=== PATIENT | female | born 1945 | race Caucasian/White ===

== ENCOUNTER → 2017-07-22 | Outpatient (CLI) | payer MEDICARE, OTHER ==
[~2017-07-22] MED LIST: Acetaminophen1 EAC2 PO; Balsalazide Di750 MG PO; GLUCOSAMINE CH1 EAC1 PO; IBUP800; TUMS ULTRA ST1177 MG PO
== END | disposition home or self-care (01) ==
LOC: LAB SHORT 14:13 → PLD 14:13
DX: D48.5 Neoplasm of uncertain behavior of skin (principal)
CPT/HCPCS: 88305

== ENCOUNTER 2017-09-11 06:44 | Day surgery (SDC) | payer MEDICARE, OTHER ==
[~2017-09-11] VITALS: Ht 162.6 cm; Wt 84.8 kg
[~2017-09-11 06:44] MED LIST changes: +Aspirin EC81 MG; +FOLI1; +SULF500A
== END 2017-09-11 08:31 | disposition home or self-care (01) ==
LOC: ORSCSDS 06:44
PROVIDERS: Ophthalmology
PROC: 08RK3JZ Replacement of Left Lens with Synthetic Substitute, Percutaneous Approach (ICD-10-PCS; principal; 2017-09-11 08:00)
DX: H25.12 Age-related nuclear cataract, left eye (principal)
CPT/HCPCS: J2250; J3010; J3301; V2632

== ENCOUNTER 2018-12-03 08:19 | Day surgery (SDC) | payer MEDICARE, OTHER ==
[~2018-12-03] VITALS: Ht 160 cm; Wt 83.0 kg
[~2018-12-03 08:19] MED LIST changes: +Anti-Diarrheal2 MG PO; -FOLI1; +FOLI1 PO; +Hair, Skin & N1 EACH PO; +NITR.4SL SL; +OMEPRAZOLE20 MG PO; -SULF500A; +SULF500A PO; +VITAMIN D31000 UNIT PO
== END 2018-12-03 10:35 | disposition home or self-care (01) ==
LOC: ORSCSDS 08:19
PROVIDERS: Internal Medicine Gastroenterology
PROC: 0DBK8ZX Excision of Ascending Colon, Via Natural or Artificial Opening Endoscopic, Diagnostic (ICD-10-PCS; principal; 2018-12-03 09:45)
PROC: 0DBP8ZX Excision of Rectum, Via Natural or Artificial Opening Endoscopic, Diagnostic (ICD-10-PCS; principal; 2018-12-03 09:45)
PROC: 0DBM8ZX Excision of Descending Colon, Via Natural or Artificial Opening Endoscopic, Diagnostic (ICD-10-PCS; principal; 2018-12-03 09:45)
DX: K51.90 Ulcerative colitis, unspecified, without complications (principal); Z86.010 Personal history of colon polyps; D12.2 Benign neoplasm of ascending colon; D12.4 Benign neoplasm of descending colon; K62.1 Rectal polyp; K57.30 Diverticulosis of large intestine without perforation or abscess without bleeding
CPT/HCPCS: 88305; J2704; J7030; J7120

== ENCOUNTER → 2020-05-31 | Outpatient (CLI) | payer MEDICARE | END | disposition home or self-care (01) | LOC: LAB SHORT 07:55 → LAB 07:55 | DX: C00-D49 Neoplasms (principal) | CPT/HCPCS: 88305 ==

== ENCOUNTER → 2020-09-13 | Outpatient (CLI) | payer MEDICARE | END | disposition home or self-care (01) | LOC: LAB 11:58 → LAB SHORT 11:58 | DX: L57.0 Actinic keratosis (principal) | CPT/HCPCS: 88305 ==

== ENCOUNTER 2021-09-27 07:41 | Day surgery (SDC) | payer MEDICARE, OTHER ==
[~2021-09-27] VITALS: Ht 162.6 cm; Wt 88.0 kg
[2021-09-27] MEDS ORDERED: ALEN70 PO (08:17)
--- NOTE | 2021-09-27 08:20 | NUR ---
09/27/21 0820 Katalina Garnica AT 0816 PLEDGET AT 0818
== END 2021-09-27 09:55 | disposition home or self-care (01) ==
LOC: ORSCSDS 07:41
PROVIDERS: Ophthalmology
PROC: 08RJ3JZ Replacement of Right Lens with Synthetic Substitute, Percutaneous Approach (ICD-10-PCS; principal; 2021-09-27 09:00)
DX: H25.11 Age-related nuclear cataract, right eye (principal); H52.201 Unspecified astigmatism, right eye; K21.9 Gastro-esophageal reflux disease without esophagitis; Z79.899 Other long term (current) drug therapy; E66.9 Obesity, unspecified; Z68.33 Body mass index [BMI] 33.0-33.9, adult
CPT/HCPCS: A9270; J2001; J2250; J3010; J7040; V2632

== ENCOUNTER → 2021-11-21 | Outpatient (CLI) | payer MEDICARE, OTHER ==
[~2021-11-21] MED LIST changes: +ALEN70 PO
== END | disposition home or self-care (01) ==
LOC: LAB SHORT 15:07
DX: C44.619 Basal cell carcinoma of skin of left upper limb, including shoulder (principal)
CPT/HCPCS: 88305

== ENCOUNTER → 2022-07-30 | Outpatient (CLI) | payer MEDICARE, OTHER | END | disposition home or self-care (01) | LOC: LAB SHORT 11:27 → PLD 11:27 | DX: C44.319 Basal cell carcinoma of skin of other parts of face (principal) | CPT/HCPCS: 88305 ==

== ENCOUNTER → 2023-07-08 | Outpatient (CLI) | payer MEDICARE, OTHER | END | disposition home or self-care (01) | LOC: LAB SHORT 14:50 → LAB 14:50 | DX: R35.0 Frequency of micturition (principal) | CPT/HCPCS: 87077; 87086; 87186 ==

== ENCOUNTER → 2023-09-10 | Outpatient (CLI) | payer MEDICARE, OTHER ==
[2023-09-10 20:05] LABS: Bacterial Vaginosis PCR Negative (NEGATIVE); Candida Group, PCR NOT DETECTED (NOT DETECT); Candida glabrata-krusei, PCR NOT DETECTED (NOT DETECT)
== END ==
LOC: LAB 15:38 → LAB SHORT 15:38
PROVIDERS: Family Medicine
DX: N89.8 Other specified noninflammatory disorders of vagina (principal)
CPT/HCPCS: 87481; 87661; 87801